=== PATIENT | male | born 1970 | race Caucasian/White ===

== ENCOUNTER 2023-07-12 16:17 | Inpatient (IN) | payer OTHER ==
[~2023-07-12] VITALS: Ht 177.8 cm; Wt 70.7 kg
[2023-07-12 17:05] VITALS: BP 139/77; PULSE 106; RESP 20; TEMP 97.2
[2023-07-12] MEDS ORDERED: MAGNESIUM HYDROXIDE SUSPENSION 30 ML UDCUP PO PRN (19:15)
[2023-07-12] MEDS ORDERED: ACETAMINOPHEN 325 MG TABLET PO PRN (19:15)
[2023-07-12] MEDS ORDERED: BISACODYL 10 MG RECTAL RECTAL SUPPOSITORY PR PRN (19:15)
[2023-07-12] MEDS ORDERED: HYDROCODONE/ACETAMINOPHEN 5-325 MG TABLET PO PRN (19:15)
[2023-07-12] MEDS ORDERED: ONDANSETRON HCL 4 MG/2 ML VIAL IVP PRN (19:15)
[2023-07-12] MEDS ORDERED: ZOLPIDEM TARTRATE 5 MG TABLET PO PRN (19:15)
[2023-07-12 19:18] VITALS: BP 128/86; PULSE 95; RESP 18; TEMP 98.1
[2023-07-12] MEDS: DOCUSATE SODIUM 100 MG CAPSULE PO SCH (21:00)
[2023-07-12] MEDS: QUEtiapine FUMARATE 200 MG TABLET PO SCH (21:34)
[2023-07-12] MEDS: PANTOPRAZOLE SODIUM 40 MG/VIAL IVP SCH (21:34)
[2023-07-12] MEDS: HEPARIN SODIUM,PORCINE 5,000 UNITS/ML VIAL SQ SCH (23:55)
[2023-07-13 04:30] VITALS: BP 103/71; PULSE 86; RESP 19; TEMP 98.4
[2023-07-13] MEDS: CITALOPRAM HYDROBROMIDE 20 MG TABLET PO SCH (07:48)
[2023-07-13 08:10] VITALS: BP 114/75; PULSE 82; RESP 18; TEMP 98.4
[2023-07-13 08:14] LABS: BASOPHILS % (AUTO) 0.6 % (0.0-2.0); EOSINOPHILS % (AUTO) 1.1 % (1.0-6.0); HEMOGLOBIN 13.1 g/dL (13.5-17.5); LYMPHOCYTES % (AUTO) 21.7 % (22.0-44.0); MEAN CORPUSCULAR HEMOGLOBIN 32.2 pg (26.0-34.0); MEAN CORPUSCULAR HGB CONC 32.8 G/dL (31.0-37.0); MEAN CORPUSCULAR VOLUME 98 fL (80-100); MONOCYTES # (AUTO) 0.9 K/uL (0.1-1.0); MONOCYTES % (AUTO) 6.5 % (2.0-9.0); NEUTROPHILS # (AUTO) 9.7 K/uL (1.8-7.7); NEUTROPHILS % (AUTO) 70.1 % (40.0-70.0); PLATELET COUNT (AUTO) 234 K/uL (150-450); RED BLOOD CELL COUNT(AUTO) 4.08 MIL/uL (4.50-5.90); RED CELL DISTRIBUTION WIDTH 14.8 % (11.5-14.5); WHITE BLOOD COUNT (AUTO) 13.8 K/uL (4.5-11.0)
[2023-07-13 08:26] LABS: ALANINE AMINOTRANSFERASE 43 U/L (12-78); ALBUMIN 3.1 g/dL (3.4-5.0); ALKALINE PHOSPHATASE 69 U/L (46-116); ANION GAP 10 mmol/L (8-16); ASPARTATE AMINOTRANSFERASE 21 U/L (15-37); BILIRUBIN,TOTAL 0.2 mg/dL (0.1-1.0); CARBON DIOXIDE 28 mmol/L (22-29); CHLORIDE 106 mmol/L (98-107); CREATININE 0.68 mg/dL (0.60-1.30); GLOMERULAR FILTR. RATE CALC > 60 mL/min (>60); GLUCOSE,RANDOM 152 mg/dL (70-110); POTASSIUM 3.6 mmol/L (3.5-5.1); SODIUM SERUM 144 mmol/L (136-145); TOTAL PROTEIN, SERUM 7.6 g/dL (6.4-8.2); UREA NITROGEN, BLOOD 19 mg/dL (7-18)
[2023-07-13] MEDS ORDERED: PANTOPRAZOLE SODIUM 40 MG DR TABLET PO SCH (09:00)
[2023-07-13 16:15] VITALS: BP 126/87; PULSE 94; RESP 18; TEMP 98.2
[2023-07-13 19:50] VITALS: BP 110/72; PULSE 78; RESP 18; TEMP 97.7
[2023-07-14 06:46] VITALS: BP 120/73; PULSE 60; RESP 18; TEMP 97.9
[2023-07-14 08:02] LABS: TROPONIN I-HIGH SENSITIVITY Less Than 4 ng/L (<76)
[2023-07-14 08:18] VITALS: BP 114/73; PULSE 85; RESP 18; TEMP 98.2
[2023-07-14 16:35] VITALS: BP 117/83; PULSE 72; RESP 18; TEMP 98.3
[2023-07-14 17:26] LABS: APPEARANCE,URINE CLEAR (CLEAR); BILIRUBIN,URINE NEGATIVE (NEGATIVE); COLOR,URINE YELLOW (YELLOW); GLUCOSE, URINE (UA) NEGATIVE (NEGATIVE); KETONES,URINE NEGATIVE (NEGATIVE); LEUKOCYTE ESTERASE ,URINE NEGATIVE (NEGATIVE); NITRATE,URINE NEGATIVE (NEGATIVE); OCCULT BLOOD,URINE NEGATIVE (NEGATIVE); PH,URINE 6.5 (5.0-8.0); PROTEIN,URINE NEGATIVE (NEGATIVE); SPECIFIC GRAVITIY, URINE 1.025 (1.003-1.030)
[2023-07-14 18:27] LABS: BACTERIA,URINE None Seen /HPF (None Seen); RBC,URINE None Seen /HPF (0-2); WBC,URINE 0-2 /HPF (0-5)
[2023-07-14 19:40] VITALS: BP 109/72; PULSE 77; RESP 20; TEMP 98.2
[2023-07-15 04:08] VITALS: BP 129/79; PULSE 91; RESP 18; TEMP 98.4
[2023-07-15 07:21] VITALS: BP 126/84; PULSE 85; RESP 18; TEMP 97.5
[2023-07-15 07:30] LABS: BASOPHILS % (AUTO) 0.5 % (0.0-2.0); HEMOGLOBIN 13.3 g/dL (13.5-17.5); LYMPHOCYTES # (AUTO) 3.1 K/uL (1.0-4.8); LYMPHOCYTES % (AUTO) 23.4 % (22.0-44.0); MEAN CORPUSCULAR HEMOGLOBIN 33.1 pg (26.0-34.0); MEAN CORPUSCULAR HGB CONC 34.1 G/dL (31.0-37.0); MEAN CORPUSCULAR VOLUME 97 fL (80-100); MONOCYTES # (AUTO) 1.1 K/uL (0.1-1.0); MONOCYTES % (AUTO) 8.4 % (2.0-9.0); NEUTROPHILS # (AUTO) 8.8 K/uL (1.8-7.7); NEUTROPHILS % (AUTO) 66.7 % (40.0-70.0); PLATELET COUNT (AUTO) 217 K/uL (150-450); RED BLOOD CELL COUNT(AUTO) 4.01 MIL/uL (4.50-5.90); RED CELL DISTRIBUTION WIDTH 14.5 % (11.5-14.5); WHITE BLOOD COUNT (AUTO) 13.1 K/uL (4.5-11.0)
[2023-07-15 08:00] LABS: ANION GAP 11 mmol/L (8-16); CALCIUM, TOTAL 8.5 mg/dL (8.8-10.5); CARBON DIOXIDE 29 mmol/L (22-29); CHLORIDE 103 mmol/L (98-107); CREATININE 0.68 mg/dL (0.60-1.30); GLOMERULAR FILTR. RATE CALC > 60 mL/min (>60); GLUCOSE,RANDOM 136 mg/dL (70-110); POTASSIUM 3.9 mmol/L (3.5-5.1); SODIUM SERUM 143 mmol/L (136-145); UREA NITROGEN, BLOOD 19 mg/dL (7-18)
[2023-07-15 16:04] VITALS: BP 128/82; PULSE 65; RESP 18; TEMP 98.2
[2023-07-15 19:26] VITALS: BP 103/66; PULSE 74; RESP 19; TEMP 98.4
[2023-07-16 05:51] VITALS: BP 113/72; PULSE 89; RESP 18; TEMP 98.4
[2023-07-16 08:09] LABS: BASOPHILS % (AUTO) 0.6 % (0.0-2.0); EOSINOPHILS % (AUTO) 1.2 % (1.0-6.0); HEMATOCRIT 37.7 % (41-53); HEMOGLOBIN 12.9 g/dL (13.5-17.5); LYMPHOCYTES # (AUTO) 3.5 K/uL (1.0-4.8); LYMPHOCYTES % (AUTO) 35.7 % (22.0-44.0); MEAN CORPUSCULAR HEMOGLOBIN 33.1 pg (26.0-34.0); MEAN CORPUSCULAR HGB CONC 34.2 G/dL (31.0-37.0); MEAN CORPUSCULAR VOLUME 97 fL (80-100); MONOCYTES # (AUTO) 0.9 K/uL (0.1-1.0); MONOCYTES % (AUTO) 9.4 % (2.0-9.0); NEUTROPHILS # (AUTO) 5.2 K/uL (1.8-7.7); NEUTROPHILS % (AUTO) 53.1 % (40.0-70.0); PLATELET COUNT (AUTO) 205 K/uL (150-450); RED CELL DISTRIBUTION WIDTH 14.6 % (11.5-14.5); WHITE BLOOD COUNT (AUTO) 9.8 K/uL (4.5-11.0)
[2023-07-16 08:13] LABS: ANION GAP 8 mmol/L (8-16); CALCIUM, TOTAL 8.5 mg/dL (8.8-10.5); CARBON DIOXIDE 30 mmol/L (22-29); CHLORIDE 102 mmol/L (98-107); CREATININE 0.62 mg/dL (0.60-1.30); GLOMERULAR FILTR. RATE CALC > 60 mL/min (>60); GLUCOSE,RANDOM 134 mg/dL (70-110); POTASSIUM 3.5 mmol/L (3.5-5.1); SODIUM SERUM 140 mmol/L (136-145); UREA NITROGEN, BLOOD 20 mg/dL (7-18)
[2023-07-16 12:00] VITALS: BP 98/59; PULSE 76; RESP 18; TEMP 97.6
[2023-07-16 19:10] VITALS: BP 108/67; PULSE 79; RESP 19; TEMP 98
[2023-07-17 03:20] VITALS: BP 100/68; PULSE 83; RESP 19; TEMP 98
[2023-07-17] MEDS: LEVOTHYROXINE SODIUM 50 MCG TABLET PO SCH (06:22)
[2023-07-17 07:13] LABS: BASOPHILS % (AUTO) 0.7 % (0.0-2.0); HEMATOCRIT 39.4 % (41-53); HEMOGLOBIN 13.3 g/dL (13.5-17.5); LYMPHOCYTES # (AUTO) 3.6 K/uL (1.0-4.8); LYMPHOCYTES % (AUTO) 35.4 % (22.0-44.0); MEAN CORPUSCULAR HEMOGLOBIN 32.5 pg (26.0-34.0); MEAN CORPUSCULAR HGB CONC 33.7 G/dL (31.0-37.0); MEAN CORPUSCULAR VOLUME 96 fL (80-100); MONOCYTES # (AUTO) 0.9 K/uL (0.1-1.0); MONOCYTES % (AUTO) 8.6 % (2.0-9.0); NEUTROPHILS # (AUTO) 5.5 K/uL (1.8-7.7); NEUTROPHILS % (AUTO) 54.3 % (40.0-70.0); PLATELET COUNT (AUTO) 196 K/uL (150-450); RED BLOOD CELL COUNT(AUTO) 4.09 MIL/uL (4.50-5.90); RED CELL DISTRIBUTION WIDTH 14.2 % (11.5-14.5); WHITE BLOOD COUNT (AUTO) 10.2 K/uL (4.5-11.0)
[2023-07-17 07:31] VITALS: BP 104/64; PULSE 82; RESP 18; TEMP 98.2
[2023-07-17 07:44] LABS: ANION GAP 9 mmol/L (8-16); CALCIUM, TOTAL 8.6 mg/dL (8.8-10.5); CARBON DIOXIDE 28 mmol/L (22-29); CHLORIDE 102 mmol/L (98-107); CREATININE 0.56 mg/dL (0.60-1.30); GLOMERULAR FILTR. RATE CALC > 60 mL/min (>60); GLUCOSE,RANDOM 133 mg/dL (70-110); POTASSIUM 3.6 mmol/L (3.5-5.1); SODIUM SERUM 139 mmol/L (136-145); UREA NITROGEN, BLOOD 19 mg/dL (7-18)
[2023-07-17 15:09] VITALS: BP 112/68; PULSE 78; RESP 19; TEMP 97.9
[2023-07-17 19:58] VITALS: BP 108/63; PULSE 80; RESP 18; TEMP 97.9
[2023-07-18] MEDS ORDERED: SODIUM CHLORIDE 0.9% 500 ML IV ONE (00:14)
[2023-07-18 04:48] VITALS: BP 94/69; PULSE 66; RESP 18; TEMP 98.7
[2023-07-18 08:10] VITALS: BP 115/63; PULSE 78; RESP 18; TEMP 98
[2023-07-18 15:30] VITALS: BP 110/68; PULSE 68; RESP 18; TEMP 98.4
[2023-07-18 19:24] VITALS: BP 101/53; PULSE 67; RESP 18; TEMP 98.2
[2023-07-19 05:00] VITALS: BP 106/61; PULSE 74; RESP 18; TEMP 98.1
[2023-07-19 08:00] VITALS: BP 108/75; PULSE 74; RESP 18; TEMP 97.7
[2023-07-19 19:37] VITALS: BP 106/68; PULSE 70; RESP 18; TEMP 98.1
[2023-07-20 05:48] VITALS: BP 106/66; PULSE 69; RESP 18; TEMP 98.6
[2023-07-20 07:50] VITALS: BP 111/63; PULSE 65; RESP 18; TEMP 98.5
[2023-07-20 15:32] VITALS: BP 101/57; PULSE 69; RESP 18; TEMP 98.2
[2023-07-20 20:15] VITALS: BP 117/73; PULSE 71; RESP 18; TEMP 98.1
[2023-07-20] MEDS: QUEtiapine FUMARATE 25 MG TABLET PO SCH (20:48)
[2023-07-21 05:30] VITALS: BP 104/70; PULSE 70; RESP 18; TEMP 98.5
[2023-07-21 07:28] VITALS: BP 114/67; PULSE 74; RESP 18; TEMP 98
[2023-07-21 15:32] VITALS: BP 104/75; PULSE 68; RESP 18; TEMP 98.3
[2023-07-21 19:47] VITALS: BP 105/58; PULSE 65; RESP 18; TEMP 97.7
[2023-07-22 06:00] VITALS: BP 105/73; PULSE 75; RESP 18; TEMP 98.1
[2023-07-22 08:38] VITALS: BP 117/69; PULSE 84; RESP 18; TEMP 97.7
[2023-07-22] MEDS: VALPROIC ACID 250 MG/5 ML SOLUTION UDCUP PO SCH (09:33)
[2023-07-22 16:16] VITALS: BP 103/65; PULSE 63; RESP 18; TEMP 97.4
[2023-07-22 19:45] VITALS: BP 126/78; PULSE 83; RESP 20; TEMP 97.5
[2023-07-23 06:00] VITALS: BP 114/76; PULSE 83; RESP 18; TEMP 97.9
[2023-07-23 07:36] VITALS: BP 113/71; PULSE 79; RESP 18; TEMP 97.7
[2023-07-23 16:15] VITALS: BP 108/64; PULSE 69; RESP 18; TEMP 98
[2023-07-23 20:00] VITALS: BP 109/66; PULSE 63; RESP 18; TEMP 97.5
[2023-07-24 05:00] VITALS: BP 97/66; PULSE 63; RESP 18; TEMP 97.7
[2023-07-24 07:45] VITALS: BP 103/67; PULSE 69; RESP 18; TEMP 97.6
[2023-07-24 08:31] LABS: BASOPHILS % (AUTO) 0.8 % (0.0-2.0); EOSINOPHILS % (AUTO) 2.2 % (1.0-6.0); HEMATOCRIT 39.8 % (41-53); HEMOGLOBIN 13.6 g/dL (13.5-17.5); LYMPHOCYTES # (AUTO) 2.5 K/uL (1.0-4.8); LYMPHOCYTES % (AUTO) 29.1 % (22.0-44.0); MEAN CORPUSCULAR VOLUME 97 fL (80-100); MONOCYTES # (AUTO) 0.7 K/uL (0.1-1.0); MONOCYTES % (AUTO) 8.7 % (2.0-9.0); NEUTROPHILS # (AUTO) 5.1 K/uL (1.8-7.7); NEUTROPHILS % (AUTO) 59.2 % (40.0-70.0); PLATELET COUNT (AUTO) 236 K/uL (150-450); RED BLOOD CELL COUNT(AUTO) 4.11 MIL/uL (4.50-5.90); RED CELL DISTRIBUTION WIDTH 14.5 % (11.5-14.5); WHITE BLOOD COUNT (AUTO) 8.6 K/uL (4.5-11.0)
[2023-07-24 08:46] LABS: ANION GAP 9 mmol/L (8-16); CALCIUM, TOTAL 8.8 mg/dL (8.8-10.5); CARBON DIOXIDE 29 mmol/L (22-29); CHLORIDE 100 mmol/L (98-107); CREATININE 0.61 mg/dL (0.60-1.30); GLOMERULAR FILTR. RATE CALC > 60 mL/min (>60); GLUCOSE,RANDOM 131 mg/dL (70-110); POTASSIUM 3.9 mmol/L (3.5-5.1); SODIUM SERUM 138 mmol/L (136-145); UREA NITROGEN, BLOOD 16 mg/dL (7-18)
[2023-07-24 15:00] VITALS: BP 107/68; PULSE 70; RESP 18; TEMP 97.5
[2023-07-24 20:04] VITALS: BP 117/60; PULSE 75; RESP 18; TEMP 97.8
[2023-07-25 03:50] VITALS: BP 108/72; PULSE 77; RESP 18; TEMP 97.7
[2023-07-25 08:08] VITALS: BP 108/68; PULSE 72; RESP 18; TEMP 98.3
[2023-07-25 15:12] VITALS: BP 99/41; PULSE 67; RESP 18; TEMP 97.5
[2023-07-25 20:00] VITALS: BP 104/66; PULSE 66; RESP 18; TEMP 98.1
[2023-07-26 05:45] VITALS: BP 106/63; PULSE 70; RESP 18; TEMP 98.2
[2023-07-26 08:13] VITALS: BP 104/74; PULSE 69; RESP 18; TEMP 97.7
[2023-07-26 16:44] VITALS: BP 118/76; PULSE 74; RESP 18; TEMP 97.6
[2023-07-26 19:44] VITALS: BP 95/64; PULSE 65; RESP 18; TEMP 97.9
[2023-07-27 05:20] VITALS: BP 91/61; PULSE 62; RESP 18; TEMP 97.9
[2023-07-27 08:01] VITALS: BP 101/66; PULSE 65; RESP 18; TEMP 97.9
[2023-07-27 14:49] VITALS: BP 99/56; PULSE 63; RESP 18; TEMP 97.5
[2023-07-27 19:43] VITALS: BP 106/67; PULSE 64; RESP 18; TEMP 97.5
[2023-07-28 06:07] VITALS: BP 100/68; PULSE 64; RESP 18; TEMP 97.8
[2023-07-28 09:25] VITALS: BP 93/64; PULSE 68; RESP 18; TEMP 98.4
[2023-07-28 16:28] VITALS: BP 106/74; PULSE 66; RESP 18; TEMP 98.3
[2023-07-28 19:57] VITALS: BP 108/68; PULSE 72; RESP 20; TEMP 98.4
[2023-07-29 05:12] VITALS: BP 100/62; PULSE 68; RESP 18; TEMP 98.4
[2023-07-29 07:30] VITALS: BP 106/76; PULSE 71; RESP 20; TEMP 97.5
[2023-07-29 16:28] VITALS: BP 101/71; PULSE 66; RESP 18; TEMP 98
[2023-07-29] MEDS: VALPROIC ACID 250 MG/5 ML SOLUTION UDCUP PO SCH (19:59)
[2023-07-29 20:05] VITALS: BP 100/62; PULSE 62; RESP 18; TEMP 98.1
[2023-07-30 05:28] VITALS: BP 99/62; PULSE 71; RESP 18; TEMP 97.8
[2023-07-30 07:34] VITALS: BP 102/68; PULSE 69; RESP 18; TEMP 98.1
[2023-07-30 16:14] VITALS: BP 108/71; PULSE 70; RESP 19; TEMP 97.6
[2023-07-30 19:30] VITALS: BP 105/73; PULSE 65; RESP 18; TEMP 98.3
[2023-07-31 06:00] VITALS: BP 95/62; PULSE 65; RESP 18; TEMP 98.1
[2023-07-31 07:21] VITALS: BP 96/69; PULSE 66; RESP 18; TEMP 98
[2023-07-31 11:05] LABS: BASOPHILS % (AUTO) 0.4 % (0.0-2.0); EOSINOPHILS % (AUTO) 1.2 % (1.0-6.0); HEMATOCRIT 40.2 % (41-53); HEMOGLOBIN 13.5 g/dL (13.5-17.5); LYMPHOCYTES # (AUTO) 2.6 K/uL (1.0-4.8); MEAN CORPUSCULAR HEMOGLOBIN 32.6 pg (26.0-34.0); MEAN CORPUSCULAR HGB CONC 33.7 G/dL (31.0-37.0); MEAN CORPUSCULAR VOLUME 97 fL (80-100); MONOCYTES # (AUTO) 0.6 K/uL (0.1-1.0); MONOCYTES % (AUTO) 6.3 % (2.0-9.0); NEUTROPHILS # (AUTO) 6.7 K/uL (1.8-7.7); NEUTROPHILS % (AUTO) 66.1 % (40.0-70.0); PLATELET COUNT (AUTO) 208 K/uL (150-450); RED BLOOD CELL COUNT(AUTO) 4.15 MIL/uL (4.50-5.90); RED CELL DISTRIBUTION WIDTH 13.9 % (11.5-14.5); WHITE BLOOD COUNT (AUTO) 10.2 K/uL (4.5-11.0)
[2023-07-31 11:16] LABS: ANION GAP 7 mmol/L (8-16); CALCIUM, TOTAL 9.1 mg/dL (8.8-10.5); CARBON DIOXIDE 30 mmol/L (22-29); CHLORIDE 101 mmol/L (98-107); CREATININE 0.57 mg/dL (0.60-1.30); GLOMERULAR FILTR. RATE CALC > 60 mL/min (>60); GLUCOSE,RANDOM 103 mg/dL (70-110); POTASSIUM 3.6 mmol/L (3.5-5.1); SODIUM SERUM 138 mmol/L (136-145); UREA NITROGEN, BLOOD 19 mg/dL (7-18)
[2023-07-31] MEDS ORDERED: DEXAMETHASONE SOD PHOS 4 MG/ML VIAL IVP ONE (12:00)
[2023-07-31] MEDS ORDERED: MIDAZOLAM HCL 2 MG/2 ML VIAL IVP ONE (12:00)
[2023-07-31] MEDS ORDERED: SUGAMMADEX SODIUM 200 MG/2 ML VIAL IVP ONE (12:00)
[2023-07-31] MEDS ORDERED: FentaNYL CITRATE PF 100 MCG/2 ML VIAL IVP ONE (12:00)
[2023-07-31] MEDS ORDERED: LIDOCAINE/PF 2% 5 ML VIAL IM ONE (12:00)
[2023-07-31] MEDS ORDERED: ONDANSETRON HCL 4 MG/2 ML VIAL IVP ONE (12:00)
[2023-07-31] MEDS ORDERED: PROPOFOL 1% 20 ML VIAL IVP ONE (12:00)
[2023-07-31] MEDS ORDERED: ROCURONIUM BROMIDE 10 MG/ML 5 ML VIAL IVP ONE (12:00)
[2023-07-31] MEDS ORDERED: SODIUM CHLORIDE 0.9% 1,000 ML ONE (15:25)
[2023-07-31] MEDS ORDERED: IOHEXOL 240 MG/ML 20 ML VIAL ONE (16:08)
[2023-07-31] MEDS ORDERED: BACITRACIN 28 GM OINTMENT TP ONE (17:09)
[2023-07-31 18:06] VITALS: BP 99/68; PULSE 69; RESP 18; TEMP 97.5
[2023-07-31] MEDS: MORPHINE SULFATE 2 MG/ML SYRINGE IVP PRN (18:12)
[2023-07-31 19:50] VITALS: BP 99/57; PULSE 70; RESP 18; TEMP 97.5
[2023-08-01 06:00] VITALS: BP 93/57; PULSE 66; RESP 18; TEMP 97.7
[2023-08-01 16:14] VITALS: BP 93/64; PULSE 67; RESP 16; TEMP 98.2
[2023-08-01 19:31] VITALS: BP 97/68; PULSE 76; RESP 18; TEMP 98.1
[2023-08-02 05:29] VITALS: BP 95/61; PULSE 70; RESP 18; TEMP 97.8
[2023-08-02 07:44] VITALS: BP 97/63; PULSE 68; RESP 18; TEMP 98
[2023-08-02 15:59] VITALS: BP 101/72; PULSE 69; RESP 18; TEMP 98
[2023-08-02 19:45] VITALS: BP 98/66; PULSE 64; RESP 20; TEMP 98.4
[2023-08-03] VITALS (8 sets, daily range): BP systolic 82–113; BP diastolic 50–73; PULSE 60–77; RESP 18–20; TEMP 98–98.4
[2023-08-03] MEDS ORDERED: SODIUM CHLORIDE 0.9% 1,000 ML ONE (06:15)
[2023-08-03] MEDS: SODIUM CHLORIDE 0.9% 1,000 ML IV ONE (06:20)
[2023-08-03 07:35] LABS: BASOPHILS % (AUTO) 0.7 % (0.0-2.0); EOSINOPHILS % (AUTO) 1.9 % (1.0-6.0); HEMOGLOBIN 12.7 g/dL (13.5-17.5); LYMPHOCYTES % (AUTO) 46.8 % (22.0-44.0); MEAN CORPUSCULAR HEMOGLOBIN 33.2 pg (26.0-34.0); MEAN CORPUSCULAR HGB CONC 34.2 G/dL (31.0-37.0); MEAN CORPUSCULAR VOLUME 97 fL (80-100); MONOCYTES # (AUTO) 0.6 K/uL (0.1-1.0); MONOCYTES % (AUTO) 9.4 % (2.0-9.0); NEUTROPHILS # (AUTO) 2.6 K/uL (1.8-7.7); NEUTROPHILS % (AUTO) 41.2 % (40.0-70.0); PLATELET COUNT (AUTO) 174 K/uL (150-450); RED BLOOD CELL COUNT(AUTO) 3.82 MIL/uL (4.50-5.90); RED CELL DISTRIBUTION WIDTH 13.9 % (11.5-14.5); WHITE BLOOD COUNT (AUTO) 6.4 K/uL (4.5-11.0)
[2023-08-03 07:41] LABS: ANION GAP 6 mmol/L (8-16); CALCIUM, TOTAL 8.4 mg/dL (8.8-10.5); CARBON DIOXIDE 30 mmol/L (22-29); CHLORIDE 102 mmol/L (98-107); CREATININE 0.66 mg/dL (0.60-1.30); GLOMERULAR FILTR. RATE CALC > 60 mL/min (>60); GLUCOSE,RANDOM 93 mg/dL (70-110); POTASSIUM 4.1 mmol/L (3.5-5.1); SODIUM SERUM 138 mmol/L (136-145); UREA NITROGEN, BLOOD 16 mg/dL (7-18)
[2023-08-03] MEDS: DOCUSATE SODIUM 100 MG/10 ML LIQUID UDCUP PEG SCH (20:52)
[2023-08-04 05:28] VITALS: BP 90/57; PULSE 65; RESP 18; TEMP 97.8
[2023-08-04 05:30] VITALS: BP 93/57; RESP 18
[2023-08-04 07:57] VITALS: BP 95/62; PULSE 61; RESP 18; TEMP 98.3
[2023-08-04 16:28] VITALS: BP 98/64; PULSE 64; RESP 20; TEMP 98.2
[2023-08-04 20:14] VITALS: BP 102/57; PULSE 60; RESP 18; TEMP 98.1
[2023-08-04] MEDS: VALPROIC ACID 250 MG/5 ML SOLUTION UDCUP PO SCH (20:17)
[2023-08-05 06:00] VITALS: BP 100/69; PULSE 68; RESP 18; TEMP 98.1
[2023-08-05 07:52] VITALS: BP 111/73; PULSE 66; RESP 18; TEMP 98.3
[2023-08-05 15:39] VITALS: BP 103/76; PULSE 71; RESP 20; TEMP 98.2
[2023-08-05 20:05] VITALS: BP 98/65; PULSE 70; RESP 18; TEMP 98.6
[2023-08-06 06:15] VITALS: BP 94/56; PULSE 67; RESP 18; TEMP 98.5
[2023-08-06 08:34] VITALS: BP 95/58; PULSE 65; RESP 18; TEMP 98.5
[2023-08-06 15:22] VITALS: BP 95/60; PULSE 66; RESP 18; TEMP 98.2
[2023-08-06 20:14] VITALS: BP 111/70; PULSE 74; RESP 20; TEMP 97.5
[2023-08-07 06:25] VITALS: BP 98/63; PULSE 70; RESP 20; TEMP 97.6
[2023-08-07 09:00] VITALS: BP 102/65; PULSE 80; RESP 20; TEMP 97.8
[2023-08-07 15:30] VITALS: BP 94/66; PULSE 89; RESP 20; TEMP 97.7
[2023-08-07 19:22] VITALS: BP 109/61; PULSE 75; RESP 18; TEMP 97.5
[2023-08-08 06:28] VITALS: BP 103/68; PULSE 71; RESP 18; TEMP 98.1
[2023-08-08 07:27] VITALS: BP 106/63; PULSE 62; RESP 18; TEMP 97.3
[2023-08-08 18:01] VITALS: BP 119/76; PULSE 79; RESP 18; TEMP 97.3
[2023-08-08 19:36] VITALS: BP 99/65; PULSE 67; RESP 18; TEMP 97.7
[2023-08-09 05:54] VITALS: BP 102/68; PULSE 68; RESP 18; TEMP 97.9
[2023-08-09 06:58] LABS: BASOPHILS % (AUTO) 0.7 % (0.0-2.0); EOSINOPHILS % (AUTO) 2.4 % (1.0-6.0); HEMATOCRIT 38.4 % (41-53); HEMOGLOBIN 13.2 g/dL (13.5-17.5); LYMPHOCYTES % (AUTO) 40.1 % (22.0-44.0); MEAN CORPUSCULAR HEMOGLOBIN 32.7 pg (26.0-34.0); MEAN CORPUSCULAR HGB CONC 34.3 G/dL (31.0-37.0); MEAN CORPUSCULAR VOLUME 95 fL (80-100); MONOCYTES # (AUTO) 0.8 K/uL (0.1-1.0); MONOCYTES % (AUTO) 10.1 % (2.0-9.0); NEUTROPHILS # (AUTO) 3.5 K/uL (1.8-7.7); NEUTROPHILS % (AUTO) 46.7 % (40.0-70.0); PLATELET COUNT (AUTO) 165 K/uL (150-450); RED BLOOD CELL COUNT(AUTO) 4.04 MIL/uL (4.50-5.90); RED CELL DISTRIBUTION WIDTH 13.8 % (11.5-14.5); WHITE BLOOD COUNT (AUTO) 7.5 K/uL (4.5-11.0)
[2023-08-09 07:08] LABS: ANION GAP 4 mmol/L (8-16); CALCIUM, TOTAL 8.9 mg/dL (8.8-10.5); CARBON DIOXIDE 30 mmol/L (22-29); CHLORIDE 101 mmol/L (98-107); CREATININE 0.63 mg/dL (0.60-1.30); GLOMERULAR FILTR. RATE CALC > 60 mL/min (>60); GLUCOSE,RANDOM 106 mg/dL (70-110); POTASSIUM 3.8 mmol/L (3.5-5.1); SODIUM SERUM 135 mmol/L (136-145); UREA NITROGEN, BLOOD 18 mg/dL (7-18)
[2023-08-09 08:08] VITALS: BP 109/71; PULSE 80; RESP 18; TEMP 98.2
[2023-08-09 16:24] VITALS: BP 102/67; PULSE 83; RESP 18; TEMP 97.6
[2023-08-09 19:39] VITALS: BP 103/56; PULSE 73; RESP 18; TEMP 97.9
[2023-08-10 06:30] VITALS: BP 97/57; PULSE 68; RESP 18; TEMP 98
[2023-08-10 08:02] VITALS: BP 105/61; PULSE 69; RESP 18; TEMP 98
[2023-08-10 15:12] VITALS: BP 108/66; PULSE 67; RESP 18; TEMP 98.2
[2023-08-10 20:52] VITALS: BP 97/69; PULSE 72; RESP 18; TEMP 97.8
[2023-08-11 06:00] VITALS: BP 100/63; PULSE 68; RESP 18; TEMP 98.2
[2023-08-11 08:53] VITALS: BP 94/64; PULSE 67; RESP 18; TEMP 98.1
[2023-08-11 16:33] VITALS: BP 100/68; PULSE 64; RESP 18; TEMP 97.3
[2023-08-11 19:30] VITALS: BP 100/59; PULSE 63; RESP 18; TEMP 98.1
[2023-08-12 05:15] VITALS: BP 92/61; PULSE 65; RESP 18; TEMP 97.8
[2023-08-12 06:30] LABS: GLUCOMETER DEV NAME(LOC) 4E.2; GLUCOSE,POINT OF CARE 104 MG/DL (70-110)
[2023-08-12 07:56] VITALS: BP 95/65; PULSE 67; RESP 18; TEMP 98
[2023-08-12 15:39] VITALS: BP 95/65; PULSE 69; RESP 18; TEMP 97.6
[2023-08-12 20:30] VITALS: BP 99/65; PULSE 64; RESP 18; TEMP 98.1
[2023-08-13 05:45] VITALS: BP 100/62; PULSE 70; RESP 0; TEMP 98.1
[2023-08-13 08:31] VITALS: BP 103/66; PULSE 69; RESP 19; TEMP 98.1
[2023-08-13 16:52] VITALS: BP 109/69; PULSE 69; RESP 19; TEMP 97.4
[2023-08-13 20:13] VITALS: BP 98/67; PULSE 67; RESP 18; TEMP 98.1
[2023-08-14 05:04] VITALS: BP 97/62; PULSE 63; RESP 18; TEMP 97.8
[2023-08-14 08:00] VITALS: BP 99/68; PULSE 71; RESP 18; TEMP 98
[2023-08-14 14:25] VITALS: BP 97/97; PULSE 74; RESP 18; TEMP 97.7
[2023-08-14 20:25] VITALS: BP 111/69; PULSE 74; RESP 18; TEMP 97.7
[2023-08-15 05:51] VITALS: BP 105/77; PULSE 70; RESP 18; TEMP 97.7
[2023-08-15 08:41] VITALS: BP 95/69; PULSE 66; RESP 19; TEMP 97.6
[2023-08-15 16:25] VITALS: BP 105/71; PULSE 67; RESP 19; TEMP 98.2
[2023-08-15 19:43] VITALS: BP 98/61; PULSE 73; RESP 18; TEMP 98.1
[2023-08-16 08:01] VITALS: BP 89/59; PULSE 64; RESP 18; TEMP 97.7
[2023-08-16 09:42] VITALS: BP 99/58; PULSE 68; RESP 18; TEMP 97.3
[2023-08-16 15:42] VITALS: BP 102/71; PULSE 64; RESP 18; TEMP 97.4
[2023-08-16 20:08] VITALS: BP 90/61; PULSE 62; RESP 18; TEMP 98
[2023-08-17 05:58] VITALS: BP 92/59; PULSE 66; RESP 18; TEMP 97.5
[2023-08-17 07:31] VITALS: BP 101/57; PULSE 62; RESP 18; TEMP 97.8
[2023-08-17 15:45] VITALS: BP 97/61; PULSE 64; RESP 18; TEMP 98.2
[2023-08-17 19:35] VITALS: BP 96/69; PULSE 63; RESP 18; TEMP 97.4
[2023-08-18 06:18] VITALS: BP 90/63; PULSE 63; RESP 18; TEMP 97.3
[2023-08-18 08:49] VITALS: BP 102/75; PULSE 69; RESP 18; TEMP 98
[2023-08-18 16:10] VITALS: BP 98/68; PULSE 65; RESP 18; TEMP 97.4
[2023-08-18 20:25] VITALS: BP 96/59; PULSE 60; RESP 20; TEMP 98.1
[2023-08-19 05:11] VITALS: BP 87/60; PULSE 63; RESP 18; TEMP 97.3
[2023-08-19] MEDS: SODIUM CHLORIDE 0.9% 500 ML IV ONE (05:31)
[2023-08-19 06:47] VITALS: BP 87/61; PULSE 65; RESP 18
[2023-08-19 08:18] VITALS: BP 95/60; PULSE 61; RESP 18; TEMP 97.8
[2023-08-19] MEDS: PANTOPRAZOLE SODIUM 40 MG DR TABLET PO SCH (09:05)
[2023-08-19 09:28] LABS: BASOPHILS % (AUTO) 0.9 % (0.0-2.0); EOSINOPHILS % (AUTO) 3.1 % (1.0-6.0); HEMATOCRIT 37.6 % (41-53); HEMOGLOBIN 12.9 g/dL (13.5-17.5); LYMPHOCYTES # (AUTO) 2.6 K/uL (1.0-4.8); LYMPHOCYTES % (AUTO) 37.5 % (22.0-44.0); MEAN CORPUSCULAR HEMOGLOBIN 32.8 pg (26.0-34.0); MEAN CORPUSCULAR HGB CONC 34.2 G/dL (31.0-37.0); MEAN CORPUSCULAR VOLUME 96 fL (80-100); MONOCYTES # (AUTO) 0.6 K/uL (0.1-1.0); MONOCYTES % (AUTO) 8.9 % (2.0-9.0); NEUTROPHILS # (AUTO) 3.4 K/uL (1.8-7.7); NEUTROPHILS % (AUTO) 49.6 % (40.0-70.0); PLATELET COUNT (AUTO) 179 K/uL (150-450); RED BLOOD CELL COUNT(AUTO) 3.93 MIL/uL (4.50-5.90); RED CELL DISTRIBUTION WIDTH 13.5 % (11.5-14.5); WHITE BLOOD COUNT (AUTO) 6.9 K/uL (4.5-11.0)
[2023-08-19 09:37] LABS: ANION GAP 7 mmol/L (8-16); CALCIUM, TOTAL 8.7 mg/dL (8.8-10.5); CARBON DIOXIDE 29 mmol/L (22-29); CHLORIDE 104 mmol/L (98-107); CREATININE 0.49 mg/dL (0.60-1.30); GLOMERULAR FILTR. RATE CALC > 60 mL/min (>60); GLUCOSE,RANDOM 106 mg/dL (70-110); POTASSIUM 3.9 mmol/L (3.5-5.1); SODIUM SERUM 140 mmol/L (136-145); UREA NITROGEN, BLOOD 14 mg/dL (7-18)
[2023-08-19 15:50] VITALS: BP 92/60; PULSE 63; RESP 18; TEMP 97.3
== END 2023-08-19 16:55 | disposition short-term general hospital (02) | DRG 384 ==
LOC: 6S 16:41
PROVIDERS: ADMIT Internal Medicine; ATTEND Internal Medicine
PROC: 0DJ08ZZ Inspection of Upper Intestinal Tract, Via Natural or Artificial Opening Endoscopic (ICD-10-PCS; principal; 2023-07-31 16:00)
DX: K25.9 Gastric ulcer, unspecified as acute or chronic, without hemorrhage or perforation (principal); R13.10 Dysphagia, unspecified; T14.91XA Suicide attempt, initial encounter; F25.1 Schizoaffective disorder, depressive type; R73.03 Prediabetes; E78.2 Mixed hyperlipidemia; K20.80 Other esophagitis without bleeding; E03.9 Hypothyroidism, unspecified; F25.9 Schizoaffective disorder, unspecified; Z87.891 Personal history of nicotine dependence; Z93.4 Other artificial openings of gastrointestinal tract status; F32.A Depression, unspecified; F41.9 Anxiety disorder, unspecified; Z79.899 Other long term (current) drug therapy; X83.8XXA Intentional self-harm by other specified means, initial encounter; Y93.89 Activity, other specified; Y92.89 Other specified places as the place of occurrence of the external cause; Y99.8 Other external cause status
CPT/HCPCS: 71045; 80048; 80053; 80164; 81001; 82962; 83036; 84443; 84484; 85025; 87081; 97116; 97162; 97166; 97535; C9113; J1100; J1644; J2250; J2270; J2405; J2704; J3010; J3490; J7030; J7040; Q9966; Q9967; 36415-L1; 36415-TC

== ENCOUNTER 2023-08-20 15:49 | Inpatient (IN) | payer OTHER ==
[~2023-08-20] VITALS: Ht 177.8 cm; Wt 68.6 kg
[2023-08-20 16:19] VITALS: BP 125/76; PULSE 90; RESP 19; TEMP 97.5
[2023-08-20] MEDS: ONDANSETRON HCL 4 MG/2 ML VIAL IVP PRN (17:24)
[2023-08-20] MEDS: SODIUM CHLORIDE 0.9% 1,000 ML IV ONE (17:24)
[2023-08-20 19:13] LABS: APPEARANCE,URINE CLEAR (CLEAR); BILIRUBIN,URINE NEGATIVE (NEGATIVE); COLOR,URINE YELLOW (YELLOW); GLUCOSE, URINE (UA) NEGATIVE (NEGATIVE); KETONES,URINE 80-100 mg/dL (NEGATIVE); LEUKOCYTE ESTERASE ,URINE NEGATIVE (NEGATIVE); NITRATE,URINE NEGATIVE (NEGATIVE); OCCULT BLOOD,URINE NEGATIVE (NEGATIVE); PROTEIN,URINE 30-70 mg/dL (NEGATIVE); SPECIFIC GRAVITIY, URINE 1.029 (1.003-1.030)
[2023-08-20 20:38] VITALS: BP 102/68; PULSE 87; RESP 18; TEMP 98.4
[2023-08-20] MEDS: FAMOTIDINE 20 MG/2.5 ML SUSPENSION ORAL.SYG PEG SCH (21:09)
[2023-08-20] MEDS: DIVALPROEX SODIUM 500 MG DR TABLET PO SCH (21:09)
[2023-08-20] MEDS: DOCUSATE SODIUM 100 MG/10 ML LIQUID UDCUP PEG SCH (21:09)
[2023-08-20] MEDS: QUEtiapine FUMARATE 200 MG TABLET PO SCH (21:09)
[2023-08-20] MEDS: ZOLPIDEM TARTRATE 5 MG TABLET PO PRN (21:09)
[2023-08-20] MEDS: HEPARIN SODIUM,PORCINE 5,000 UNITS/ML VIAL SQ SCH (23:25)
[2023-08-21] MEDS: LEVOTHYROXINE SODIUM 50 MCG TABLET PO SCH (05:47)
[2023-08-21 05:57] VITALS: BP 91/61; PULSE 87; RESP 18; TEMP 98.3
[2023-08-21 06:16] LABS: EOSINOPHILS % (AUTO) 0.6 % (1.0-6.0); HEMATOCRIT 36.8 % (41-53); HEMOGLOBIN 12.6 g/dL (13.5-17.5); LYMPHOCYTES # (AUTO) 2.9 K/uL (1.0-4.8); LYMPHOCYTES % (AUTO) 25.9 % (22.0-44.0); MEAN CORPUSCULAR HEMOGLOBIN 32.5 pg (26.0-34.0); MEAN CORPUSCULAR HGB CONC 34.3 G/dL (31.0-37.0); MEAN CORPUSCULAR VOLUME 95 fL (80-100); MONOCYTES # (AUTO) 1.2 K/uL (0.1-1.0); MONOCYTES % (AUTO) 10.2 % (2.0-9.0); NEUTROPHILS # (AUTO) 7.1 K/uL (1.8-7.7); NEUTROPHILS % (AUTO) 62.3 % (40.0-70.0); PLATELET COUNT (AUTO) 189 K/uL (150-450); RED BLOOD CELL COUNT(AUTO) 3.87 MIL/uL (4.50-5.90); RED CELL DISTRIBUTION WIDTH 13.6 % (11.5-14.5); WHITE BLOOD COUNT (AUTO) 11.4 K/uL (4.5-11.0)
[2023-08-21 06:44] LABS: ANION GAP 8 mmol/L (8-16); CALCIUM, TOTAL 8.5 mg/dL (8.8-10.5); CARBON DIOXIDE 26 mmol/L (22-29); CHLORIDE 108 mmol/L (98-107); CREATININE 0.57 mg/dL (0.60-1.30); GLOMERULAR FILTR. RATE CALC > 60 mL/min (>60); GLUCOSE,RANDOM 97 mg/dL (70-110); POTASSIUM 3.9 mmol/L (3.5-5.1); SODIUM SERUM 142 mmol/L (136-145); THYROID STIMULATING HORMONE 7.62 uIU/mL (0.36-3.74); UREA NITROGEN, BLOOD 14 mg/dL (7-18)
[2023-08-21] MEDS: CITALOPRAM HYDROBROMIDE 20 MG TABLET PO SCH (07:53)
[2023-08-21 08:15] VITALS: BP 91/57; PULSE 69; RESP 19; TEMP 97.8
[2023-08-21 15:18] VITALS: BP 92/64; PULSE 69; RESP 20; TEMP 97.2
[2023-08-21] MEDS ORDERED: SODIUM CHLORIDE 0.9% 500 ML IV ONE (16:26)
[2023-08-21 19:28] VITALS: BP 98/62; PULSE 70; RESP 18; TEMP 98.1
[2023-08-21] MEDS: QUEtiapine FUMARATE 25 MG TABLET PO SCH (20:11)
[2023-08-22 05:45] VITALS: BP 94/58; PULSE 62; RESP 18; TEMP 97.4
[2023-08-22 08:10] VITALS: BP 99/61; PULSE 68; RESP 18; TEMP 98.1
[2023-08-22 16:02] VITALS: BP 109/66; PULSE 65; RESP 18; TEMP 97.9
[2023-08-22 19:46] VITALS: BP 101/70; PULSE 84; RESP 18; TEMP 97.5
[2023-08-23 05:08] VITALS: BP 95/63; PULSE 66; RESP 18; TEMP 98
[2023-08-23 09:14] VITALS: BP 120/65; PULSE 67; RESP 18; TEMP 98.3
[2023-08-23 15:54] VITALS: BP 130/77; PULSE 86; RESP 18; TEMP 98.5
[2023-08-23 20:30] VITALS: BP 103/56; PULSE 65; RESP 18; TEMP 98.1
[2023-08-23] MEDS: ACETAMINOPHEN 325 MG TABLET PO PRN (21:27)
[2023-08-24 05:15] VITALS: BP 101/67; PULSE 72; RESP 18; TEMP 97.6
[2023-08-24 08:39] VITALS: BP 115/78; PULSE 70; RESP 18; TEMP 98
[2023-08-24 16:10] VITALS: BP 135/86; PULSE 82; RESP 18; TEMP 97.8
[2023-08-24 19:45] VITALS: BP 100/61; PULSE 77; RESP 18; TEMP 98.4
[2023-08-25 06:33] VITALS: BP 94/62; PULSE 71; RESP 18; TEMP 97.9
[2023-08-25 08:07] VITALS: BP 113/66; PULSE 70; RESP 18; TEMP 97.5
[2023-08-25 15:12] VITALS: BP 109/63; PULSE 72; RESP 18; TEMP 97.5
[2023-08-25 19:15] VITALS: BP 112/56; PULSE 66; RESP 18; TEMP 98.5
[2023-08-26 05:28] VITALS: BP 108/66; PULSE 67; RESP 18; TEMP 98.2
[2023-08-26 08:24] VITALS: BP 118/79; PULSE 70; RESP 18; TEMP 98.4
[2023-08-26] MEDS ORDERED: ACETAMINOPHEN 650 MG/20.3 ML SOLUTION UDCUP PEG PRN (09:30)
[2023-08-26] MEDS: DIVALPROEX SODIUM 125 MG DR CAPSULE PEG SCH (11:15)
[2023-08-26] MEDS: VALPROIC ACID 250 MG/5 ML SOLUTION UDCUP PEG SCH (15:04)
[2023-08-26 15:28] VITALS: BP 112/71; PULSE 79; RESP 20; TEMP 98.2
[2023-08-26 20:16] VITALS: BP 110/66; PULSE 83; RESP 19; TEMP 97.5
[2023-08-27 05:15] VITALS: BP 93/61; PULSE 64; RESP 18; TEMP 97.6
[2023-08-27 07:26] VITALS: BP 102/65; PULSE 63; RESP 18; TEMP 97.7
[2023-08-27 15:29] VITALS: BP 111/67; PULSE 72; RESP 18; TEMP 98.1
[2023-08-27 19:44] VITALS: BP 117/63; PULSE 89; RESP 18; TEMP 97.9
[2023-08-28 04:34] VITALS: BP 96/61; PULSE 69; RESP 18; TEMP 97.7
[2023-08-28 07:41] VITALS: BP 111/62; PULSE 62; RESP 18; TEMP 97.9
[2023-08-28 15:24] VITALS: BP 113/65; PULSE 81; RESP 18; TEMP 97.9
[2023-08-28 19:20] VITALS: BP 96/61; PULSE 78; RESP 18; TEMP 97.9
[2023-08-29 06:22] VITALS: BP 107/67; PULSE 79; RESP 18; TEMP 98.5
[2023-08-29 08:56] VITALS: BP 110/76; PULSE 71; RESP 16; TEMP 98
[2023-08-29 15:10] VITALS: BP 104/72; PULSE 74; RESP 18; TEMP 98.4
[2023-08-29 19:22] VITALS: BP 104/46; PULSE 80; RESP 18; TEMP 98.3
[2023-08-30] MEDS ORDERED: SODIUM CHLORIDE 0.9% 1,000 ML ONE (01:05)
[2023-08-30 06:05] VITALS: BP 105/72; PULSE 69; RESP 18; TEMP 98.2
[2023-08-30 09:22] VITALS: BP 98/68; PULSE 77; RESP 18; TEMP 97.7
[2023-08-30] MEDS ORDERED: QUET25TA36 PEG (14:39)
[2023-08-30] MEDS ORDERED: DOCU50LI40 PEG (14:39)
[2023-08-30] MEDS ORDERED: LEVO50 PEG (14:39)
[2023-08-30] MEDS ORDERED: ZOLP-280 PO (14:39)
[2023-08-30] MEDS ORDERED: ONDA-104 PEG (14:39)
[2023-08-30] MEDS ORDERED: CITA-144 PEG (14:39)
[2023-08-30] MEDS ORDERED: QUET200T30 PEG (14:39)
[2023-08-30] MEDS ORDERED: FAMO40SU5 PEG (14:39)
[2023-08-30] MEDS ORDERED: VALP250S23 PEG (14:39)
[2023-08-30 15:30] VITALS: BP 100/64; RESP 18
== END 2023-08-30 18:00 | disposition home health service (06) | DRG 392 ==
LOC: 6S 16:05
PROVIDERS: ADMIT Internal Medicine; ATTEND Internal Medicine
DX: K22.2 Esophageal obstruction (principal); R13.10 Dysphagia, unspecified; F25.1 Schizoaffective disorder, depressive type; Z79.899 Other long term (current) drug therapy
CPT/HCPCS: 80048; 81003; 84443; 85025; 87081; 99285; J1644; J2405; J7030; J7040